=== PATIENT | female | born 1980 | race Caucasian/White ===

== ENCOUNTER 2022-08-07 08:02 | Outpatient (RCR) | payer MEDICARE, OTHER, SELFPAY | END 2022-08-30 13:42 | disposition home or self-care (01) | LOC: HO.WCC 08:02 | PROVIDERS: Visit Provider Surgery | DX: L97.221 Non-pressure chronic ulcer of left calf limited to breakdown of skin (principal); L97.811 Non-pressure chronic ulcer of other part of right lower leg limited to breakdown of skin; Q82.0 Hereditary lymphedema; G40.909 Epilepsy, unspecified, not intractable, without status epilepticus; Z79.2 Long term (current) use of antibiotics | CPT/HCPCS: 11042; 97597; 99212 ==